=== PATIENT | male | born 1980 | race Caucasian/White ===

== ENCOUNTER 2016-12-16 14:43 | Emergency (ER) | payer OTHER ==
[2016-12-16 15:07] VITALS: BP 141/90
[2016-12-16] MEDS ORDERED: Proparacaine 0.5% Ophth Soln 15 ML Bottle EYELF ONE (15:18)
[2016-12-16] MEDS ORDERED: Erythromycin Base 0.5% Ophth Oint 1 GM Tube EYELF ONE (16:08)
--- NOTE | 2016-12-16 16:13 | EDM.PDOC ---
ED HPI GENERAL MEDICAL PROBLEM - General Chief Complaint: Eye Problems Stated Complaint: LEFT EYE SWELLING Time Seen by Provider: 12/16/16 15:48 Source of Information: Reports: Patient History Limitations: Reports: No Limitations - History of Present Illness INITIAL COMMENTS - FREE TEXT/NARRATIVE: Patient is a 36-year-old male who presents ED complaining of left lower eyelid discomfort. States it started 3 days ago. Has grown increasingly worse. Does not recall any foreign object in his eye. 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 Does not recall any foreign objects that may have flown into his eye. He does not wear glasses or contacts. He has irrigated his eye while at home and does not feel better. He notes puffiness and swelling to the lower eyelid. Has history of styes in the past. Denies changes in vision. He offers no additional complaints. Duration: Constant, Waxing/Waning Location: Reports: Other (left eye lid) Quality: Reports: Ache Severity: Mild Improves with: Reports: None Worsens with: Reports: Other (palpation) Context: Reports: Other (unknown) Associated Symptoms: Reports: No Other Symptoms Treatments CARDBOARD CUTTER: Reports: Other (see below) Other Treatments CARDBOARD CUTTER: flushing Left Eye Pain Score (Numeric/FACES): 5 - Related Data Allergies Allergy/AdvReac Type Severity Reaction Status Date / Time No Known Allergies Allergy Verified 12/16/16 15:10 Home Meds: Home Meds . [No Known Home Meds] 12/16/16 [History] Past Medical History - Past Health History Medical/Surgical History: Denies Medical/Surgical History - Past Surgical History GI Surgical History: Reports: Appendectomy Social & Family History - Tobacco Use Smoking Status *Q: Current Every Day Smoker Years of Tobacco use: 15 Packs/Tins Daily: 1 - Caffeine Use Caffeine Use: Reports: Energy Drinks, Soda - Recreational Drug Use Recreational Drug Use: No ED ROS GENERAL - Review of Systems Review Of Systems: See Below HEENT: Reports: Eye Pain. Denies: Contact Lenses, Eye Discharge, Glasses, Vision Change ED EXAM GENERAL W FULL EYE - Physical Exam Exam: See Below Exam Limited By: No Limitations General Appearance: Alert, WD/WN, No Apparent Distress Eye Exam: Bilateral Eye: Conjunctival Injection, EOMI, PERRL, Other (left lower eyelidswollen with mild erythema and increased pain on palpation.) Visual Acuity (R) 20/: 25 Visual Acuity (L) 20/: 20 With Correction: No Eyelids: Right: Normal Appearance, Left: Lid Everted for Exam, Stye Conjunctiva & Sclera: Bilateral: Injected Cornea Exam: Left: Corneal Abrasion, Examined with Flourescein Extraocular Movements: Bilateral: Intact Pupils: Normal Accommodation Pupillary Reaction: Bilateral: Brisk Anterior Chamber: Bilateral: Normal Appearance Ears: Hearing Grossly Normal Nose: Normal Inspection Throat/Mouth: Normal Voice, No Airway Compromise Neck: Normal Inspection, Supple Respiratory/Chest: No Respiratory Distress, No Accessory Muscle Use Cardiovascular: Normal Peripheral Pulses, Regular Rate, Rhythm Neurological: Alert, Oriented, CN II-XII Intact, Normal Cognition, No Motor/ Sensory Deficits Skin Exam: Warm, Dry, Intact Course - Vital Signs Last Recorded V/S: Last Vital Signs Temp 98.3 F 12/16/16 15:05 Pulse 103 H 12/16/16 15:05 Resp 20 12/16/16 15:05 BP 141/90 H 12/16/16 15:05 Pulse Ox 98 12/16/16 15:05 - Orders/Labs/Meds Meds: Medications Discontinued Medications Generic Name Dose Route Start Last Admin Trade Name Youngq PRN Reason Stop Dose Admin Erythromycin 1 gm 12/16/16 16:08 12/16/16 16:25 Erythromycin 0.5% Ophth Oint EYELF 12/16/16 16:09 1 applic ONETIME ONE Administration Proparacaine HCl 2 ml 12/16/16 15:18 12/16/16 15:25 Proparacaine 0.5% Ophth Soln EYELF 12/16/16 15:19 2 drop ONETIME ONE Administration - Re-Assessments/Exams Free Text/Narrative Re-Assessment/Exam: Examination of the left eye did not elicit any fluress uptake indicating no corneal abrasions. Lower eyelid is swollen, erythematous, and painful to touch. No obvious abscess present. Findings consistent with stye. He does have a history of styes in the past and has been utilizing [id number] medications with no relief. I ordered erythromycin ointment to be applied to the affected eye. We'll discharge patient home with instructions as documented. Remainder of erythromycin ointment will be sent with the patient. Departure - Departure Time of Disposition: 16:10 Disposition: Home, Self-Care 01 Condition: good Clinical Impression: Stye external Qualifiers: Laterality: left Eyelid: lower Qualified Code(s): H00.015 - Hordeolum externum left lower eyelid - Discharge Information Instructions: [facility] Referrals: PCP,None [Primary Care Provider] - Forms: ED Department Discharge Additional Instructions: Apply the erythromycin ointment 1 cm ribbon to left eye 4 times daily. Utilize warm compresses to the affected area 4-6 times daily, 20 minutes in duration. Take Tylenol and ibuprofen for pain. If symptoms contrast improved in the next 3 days please see their PCP or spot facer for further evaluation. Return back to ED if you experience any new or worsening symptoms. Do not rub the eye. To cleanse utilizing baby johnsons shampoo on wash rag. Cleanse completely.
== END 2016-12-16 16:28 | disposition home or self-care (01) ==
LOC: JD.ED 14:43
DX: H00.015 Hordeolum externum left lower eyelid (principal); F17.210 Nicotine dependence, cigarettes, uncomplicated; Z90.49 Acquired absence of other specified parts of digestive tract
CPT/HCPCS: 99283; A9270